=== PATIENT | male | born 1955 | race Caucasian/White ===

== ENCOUNTER → 2024-12-06 | Outpatient (CLI) | payer MEDICARE, MEDICAID, SELFPAY ==
--- NOTE | 2024-12-06 | XR_ITS ---
Examination: MRI lumbar spine with intravenous contrast Technique: Multiple MR sagittal and axial images post intravenous administration 16 cc gadolinium Exam date and time: December 06, 2024 1642 hrs. Indications: Low back pain for years, diagnosis malignant neoplasm prostate Findings: Adequate alignment lumbar vertebral bodies on the lateral view Prominent osteopenia Chronic osteoporotic compressions L4 L2 Abnormal areas of enhancement involving the upper margins of L4 and upper margins of L2 and central abnormal enhancement involving L3 vertebral body measuring up to 18 mm in dimension No abnormal enhancement of the conus medullaris or cauda equina No epidural tumor impinging upon the cauda equina Diffuse lumbar disc narrowing, advanced L5-S1 Impression: Abnormal areas of osseous enhancement as above consistent with metastatic disease to bone Recommend whole body bone scan follow-up
== END | disposition home or self-care (01) ==
PROVIDERS: PCP Family Medicine; Referring Provider Family Medicine; Visit Provider Family Medicine
DX: R93.7 Abnormal findings on diagnostic imaging of other parts of musculoskeletal system (principal)
CPT/HCPCS: 72149; A9579

== ENCOUNTER → 2025-03-06 | Outpatient (CLI) | payer MEDICARE, MEDICAID, SELFPAY ==
--- NOTE | 2025-03-06 14:30 | XR_ITS ---
Examination: Bone scan whole body, radioisotope Date and time of exam: March 06, 2025 1418 hours INDICATIONS: Chronic low back pain 20 years, diagnosis secondary malignant neoplasm bone, primary diagnosis malignant neoplasm prostate Technique: Study has been performed with intravenous administration of 24 mci 99M technetium MDP. Anterior, posterior whole body images are obtained. Images have been obtained including the lower extremities. Findings: Multiple foci of increased isotope accumulation thoracic lumbar spine and sacrum, increased isotope accumulation right hip as well as anterior left first and third ribs IMPRESSION: Osseous metastatic disease, consider plain films AP pelvis, bilateral ribs, thoracic lumbar spine follow-up
== END | disposition home or self-care (01) ==
PROVIDERS: Referring Provider Family Medicine; Visit Provider Family Medicine
DX: C79.51 Secondary malignant neoplasm of bone (principal); C79.9 Secondary malignant neoplasm of unspecified site
CPT/HCPCS: 78306; A9503

== ENCOUNTER → 2025-06-27 | Outpatient (CLI) | payer MEDICARE, MEDICAID, SELFPAY ==
--- NOTE | 2025-06-27 14:30 | XR_ITS ---
Examination: MRI lumbar spine without contrast Date and time of exam: June 27, 2025, 1447 hours INDICATIONS: Lower back pain radiating down both legs 10 years COMPARISON: December 06, 2024 Technique: Multiple MRI axial and sagittal sections lumbar spine. Sagittal T2-weighted images, TR 3500, TE 118 T1 weighted transverse sections, TR 688 T8.5, T2-weighted sagittal sections T1 weighted sagittal sections TR 621, TE 30 T2 axial sections, TR 4, 190, TE 84. Findings: Alignment lumbar vertebral bodies Chronic compression L4 Acute appearing mild compressions L2 L1 T12 Advanced disc narrowing L5-S1 Diffuse lumbar disc desiccation IMPRESSION: L5-S1 3 mm central lumbar disc bulge L4-L5 4 mm central lumbar disc bulge L3-L4 no disc protrusion L2-L3 no disc protrusion L1-2 no disc protrusion IMPRESSION: Acute/subacute appearing compression fractures L2, L1, T12, recommend CT scan lumbar spine without contrast follow-up
== END | disposition home or self-care (01) ==
LOC: SMRI 14:03
PROVIDERS: PCP Family Medicine; Referring Provider Family Medicine; Visit Provider Family Medicine
DX: M48.56XA Collapsed vertebra, not elsewhere classified, lumbar region, initial encounter for fracture (principal); M48.54XA Collapsed vertebra, not elsewhere classified, thoracic region, initial encounter for fracture
CPT/HCPCS: 72148